=== PATIENT | female | born 1970 | race Caucasian/White ===

== ENCOUNTER 2019-09-12 08:44 | Emergency (ER) | payer SELFPAY ==
--- NOTE | 2019-09-12 09:14 | ER Document Report ---
ED Medical Screen (RME) - General Chief Complaint: Vaginal Pain Stated Complaint: VAGINAL PAIN Time Seen by Provider: 09/12/19 09:12 - HPI Notes: 09/12/19 09:13 Patient is a 49-year-old female complaining of possible abscess to her vaginal area that is been present for the past couple days. Patient states that she has had an abscess that needed cut open in the past. No fever, abdominal pain, vomiting, diarrhea. No vaginal bleeding. No dysuria. I have treated and performed a rapid initial assessment of this patient. A comprehensive ED assessment and evaluation of the patient, analysis of test results and completion of medical decision making process will be conducted by additional ED providers. PHYSICAL EXAMINATION: GENERAL: Well-appearing, well-nourished and in no acute distress. A&Ox4. Answers questions appropriately. - Related Data Allergies/Adverse Reactions: No Known Allergies Allergy (Verified 09/12/19 09:11) Physical Exam - Vital signs Vitals: Temp Pulse Resp BP Pulse Ox 97.8 F 73 16 144/82 H 96 09/12/19 08:58 09/12/19 08:58 09/12/19 08:58 09/12/19 08:58 09/12/19 08:58 Course - Vital Signs Vital signs: Temp Pulse Resp BP Pulse Ox 97.8 F 73 16 144/82 H 96 09/12/19 08:58 09/12/19 08:58 09/12/19 08:58 09/12/19 08:58 09/12/19 08:58
--- NOTE | 2019-09-12 11:08 | ER Document Report ---
HPI - HPI Patient complains to provider of: vaginal abscess Time Seen by Provider: 09/12/19 09:12 Onset: Other Onset/Duration: Persistent Pain Level: 4 Context: 49-year-old female presents emergency department with complaints of possible abscess in her vaginal area for the last few days. Reports she has had an abscess there in the past that had to be drained. Denies MRSA. Also reports she has had vaginal bumps since she was young girl. Denies fever vomiting diarrhea. Denies pain with void. Did report some vaginal discharge. Reports she was recently sexually active with a new partner unprotected 2 weeks ago. She reports that was first time she has had sex in a while. Reports she is had vaginal discharge since that time. Patient reports her last Pap was years ago. Associated Symptoms: None Exacerbated by: Denies Relieved by: Denies Similar symptoms previously: Yes Recently seen / treated by doctor: No - REPRODUCTIVE Reproductive: DENIES: : Past Medical History - General Information source: Patient Last Menstrual Period: - Social History Smoking Status: Current Every Day Smoker Cigarette use (# per day): Yes Frequency of alcohol use: None Drug Abuse: None Occupation: [employer] Family History: Malignancy - cervical cancer-aunt Patient has suicidal ideation: No Patient has homicidal ideation: No - Past Medical History Cardiac Medical History: Reports: Hx Hypertension Psychiatric Medical History: Reports: Hx Anxiety, Hx Depression Past Surgical History: Reports: Hx Gynecologic Surgery - [employer] Vertical Provider Document - CONSTITUTIONAL Agree With Documented VS: Yes Exam Limitations: No Limitations General Appearance: WD/WN, No Apparent Distress - INFECTION CONTROL TRAVEL OUTSIDE OF THE [place] IN LAST 30 DAYS: No - HEENT HEENT: Atraumatic, Normocephalic - NECK Neck: Normal Inspection, Supple. negative: Lymphadenopathy-Left, Lymphadenopathy-Right - RESPIRATORY Respiratory: Breath Sounds Normal, No Respiratory Distress - CARDIOVASCULAR Cardiovascular: Regular Rate, Regular Rhythm - GI/ABDOMEN Gastrointestinal: Abdomen Soft, Abdomen Non-Tender - REPRODUCTIVE Female Genitalia: Abnormal Inspection Notes: Some individualized scattered papules noted to the right labia no erythema no warmth no fluctuance no induration, no open sores or lesions does not resemble herpes - BACK Back: Normal Inspection - MUSCULOSKELETAL/EXTREMETIES Musculoskeletal/Extremeties: BROOKE BRAUN - NEURO Level of Consciousness: Awake, Alert, Appropriate Motor/Sensory: No Motor Deficit - DERM Integumentary: Warm, Dry Course - Re-evaluation Re-evalutation: 09/12/19 12:07 49-year-old female presents with possible abscess to her vaginal area. Reports she has had a bump there for couple days. She reports she has had bumps on her vaginal area for years, does not know what they are. She has been evaluated by her CART DRIVER. Patient was sexually active with unprotected sex 2 weeks ago. No vesicles, open sores, or pustules noted to vaginal area. Papules noted to the right labia. No obvious abscess. Discussed vaginal discharge with patient. She reports it started after she had sex. Culture sent off for GC chlamydia and BV. Discussed options for patient. She was instructed that she can wait here 3 hours for the results of GC chlamydia, or be treated and discharged or be discharged and contacted later if she needs to come back for treatment. Patient reports she would just like to be treated now. 09/12/19 13:02 Labs unremarkable. Pelvic wet mount shows yeast, Gram stain is possible for bacterial vaginosis. Patient was instructed on all results. Patient was also treated prophylactically for gonorrhea and chlamydia. She was instructed to always protect herself during sex. She verbalized understanding. She was also instructed that she needs to follow-up with a CART DRIVER to obtain a Pap smear. She was given information on the health department. She verbalized understanding to all instructions. Microbiology 09/12/19 11:47 Gram Stain - Final Vaginal Laboratory 09/12/19 09/12/19 11:47 12:00 Urine Color STRAW Urine Appearance CLEAR Urine pH 5.0 Ur Specific [place] 1.015 Urine Protein NEGATIVE Urine Glucose (UA) NEGATIVE Urine Ketones NEGATIVE Urine Blood SMALL H Urine Nitrite NEGATIVE Urine Bilirubin NEGATIVE Urine Urobilinogen NEGATIVE Ur Leukocyte Esterase MODERATE H Urine WBC (Auto) 5 Urine RBC (Auto) 4 Urine Bacteria (Auto) TRACE Squamous Epi Cells Auto <1 Urine Mucus (Auto) RARE Urine Ascorbic Acid 20 H Epi Cells (Wet Prep) 3+ EPITHELIALS SEEN Bacteria (Wet Prep) 4+ BACTERIA SEEN Trichomonas (Wet Prep) TRICHOMONAS SEEN Vaginal WBC 4+ WBCS SEEN Vaginal RBC FEW RBCS SEEN Vaginal Yeast YEAST SEEN 09/12/19 14:37 STD cultures negative - Vital Signs Vital signs: Temp Pulse Resp BP Pulse Ox 97.8 F 73 16 144/82 H 96 09/12/19 08:58 09/12/19 08:58 09/12/19 08:58 09/12/19 08:58 09/12/19 08:58 Procedures - Pelvic Exam Pelvic exam Time completed: 11:55 Cultures obtained: Yes Wet prep obtained: Yes Herpes culture obtained: No POC sent to lab: No Foreign body removed: No Bimanual exam performed: Yes Witnessed by: clover GOMEZproduct evangelist - Discharge Clinical Impression: Vaginal irritation, Vaginal yeast infection, Possible exposure to STD Condition: Stable Disposition: HOME, SELF-CARE Instructions: Azithromycin ([facility]), Chlamydia ([facility]), Gonorrhea ([facility]), Ob-[employer] 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 Your blood pressure was elevated today. This may be because you were anxious, in pain or because you need medication. It is important to follow up with your primary care provider for full evaluation. Prescriptions: Metronidazole [Flagyl] 500 mg PO BID #14 tablet Nitrofurantoin Monohyd/M-Cryst [Macrobid 100 mg Capsule] 100 mg PO BID #20 cap Forms: Elevated Blood Pressure, Return to Work Referrals: ALBERTINA LLOYD PA-C [Primary Care Provider] - Follow up in 1 week
[2019-09-12] MEDS ORDERED: AZITHROMYCIN 250 MG TABLET PO ONE (11:58)
[2019-09-12] MEDS ORDERED: LIDOCAINE 1% INJ-PF (10 MG/ML) 30 ML SDV INJ ONE (11:58)
[2019-09-12] MEDS ORDERED: CEFTRIAXONE INJ 250 MG VIAL IM ONE (11:58)
[2019-09-12 12:15] LABS: BACTERIA (WET MOUNT) 4+ BACTERIA SEEN; EPITHELIALS (WET MOUNT) 3+ EPITHELIALS SEEN; RBCS (WET MOUNT) FEW RBCS SEEN; T.VAGINALIS (WET MOUNT) TRICHOMONAS SEEN; WBCS (WET MOUNT) 4+ WBCS SEEN; YEAST (WET MOUNT) YEAST SEEN
[2019-09-12 12:59] LABS: APPEARANCE,URINE CLEAR; BILIRUBIN,URINE NEGATIVE (NEGATIVE); COLOR,URINE STRAW; GLUCOSE, URINE NEGATIVE (NEGATIVE); KETONES,URINE NEGATIVE (NEGATIVE); LEUKOCYTE ESTERASE,URINE MODERATE (NEGATIVE); NITRITE,URINE NEGATIVE (NEGATIVE); PROTEIN,URINE NEGATIVE (NEGATIVE); URINE SPECIFIC GRAVITY 1.015; UROBILINOGEN,URINE NEGATIVE mg/dL (<2.0)
[2019-09-12] MEDS ORDERED: FLUCONAZOLE 100 MG TABLET PO ONE (13:02)
[2019-09-12 13:19] VITALS: BP 153/84
[2019-09-12 13:53] LABS: CHLAM PCR NOT DETECTED (NOT DETECT)
== END 2019-09-12 13:17 | disposition home or self-care (01) ==
LOC: ER 08:44
DX: Z20.2 Contact with and (suspected) exposure to infections with a predominantly sexual mode of transmission (principal); B37.3 Candidiasis of vulva and vagina; N89.8 Other specified noninflammatory disorders of vagina; F17.210 Nicotine dependence, cigarettes, uncomplicated; I10 Essential (primary) hypertension
CPT/HCPCS: 99283; 96374; 87205; 87210; 81001; 87491; 87591; J3490; J0696